=== PATIENT | male | born 1940 | race Caucasian/White ===

== ENCOUNTER 2025-06-12 14:53 | Emergency (ER) | payer OTHER, SELFPAY ==
[2025-06-12 15:00] VITALS: BP 149/62
--- NOTE | 2025-06-12 15:03 | ED.GENMED ---
History of Present Illness
General
Chief Complaint: Blood Sugar Problem
Source: patient and ambulance crew
Exam Limitations: altered mental status
Time Seen by Provider: 06/12/25 14:57
Nursing documentation reviewed up to this point in time: agreed with
History of Present Illness
History of Present Illness:
84-year-old male with an apparent history of insulin-dependent diabetes presents to the ER via EMS from home for evaluation of low blood sugar. Patient is agitated and hypoglycemic on arrival and is not able to participate meaningfully in history.
Per EMS patient was at his son's house and son called EMS because patient became diaphoretic and confused. On EMS arrival he was minimally responsive and diaphoretic and his glucose was 40. He was given glucagon with improvement in his glucose to
the 60s however he became agitated en route to hospital. Patient is confused and not answering questions on arrival. Apparently his family is on the way to the hospital but did not answer on phone call. He cannot tell me his current insulin
regimen or when he last took medication.
Review of Systems
Review of Systems
Unable to obtain full review of systems at this time due to: due to acuity
All Other Systems: Not applicable
Phy Exam
Physical Exam
Physical Exam:
General: Awake but confused and somewhat agitated
Head: Normocephalic, atraumatic
Eyes: Conjunctiva normal, pupils equal round reactive to light bilaterally
Throat: Airway intact, handling secretions
Neck: Trachea midline, supple without meningismus
Lungs: Clear to auscultation bilaterally, no wheezing, rales, rhonchi
Heart: Regular rate and rhythm, no murmurs, gallops, or rubs
Abd: Soft, non distended, nontender
Neuro: Grossly intact but confused
Skin: Moist and somewhat pale
Extremities: Warm with good pulses throughout
Scores
Heart Failure Risk
Heart Failure Risk Score: Not Applicable
Heart Score for Chest Pain Patients
STEMI patient?: Not applicable
Withdrawal Assessment of Alcohol
Withdrawal Assessment Completed?: Not applicable
Course
Orders/Labs/Results
Orders:
Orders
06/12/25 14:57
Bedside Glucose- Treatment ONCE
Dextrose 50%-Water [Dextrose 50% Syringe] 25 grams IV NOW STA
06/12/25 15:34
Complete Blood Count/With Diff Urgent
Comprehensive Metabolic Panel Urgent
06/12/25 15:37
Electrocardiogram (*1) Urgent
Reason for Study: Fatigue / Weakness
EKG- Treatment ONCE
Abnormal Lab Results
06/12/25 06/12/25
15:34 16:12
WBC 17.2 H 10^3/uL
(4.8-10.8)
RBC 3.69 L 10^6/uL
(4.70-6.10)
Hgb 10.6 L g/dL
(13.0-18.0)
Hct 33.4 L %
(39.0-52.0)
MCHC 31.7 L g/dL
(33.0-37.0)
Abs Immat Gran (auto) 0.1 H 10^3/uL
(0-0.05)
Absolute Neuts (auto) 14.7 H 10^3/uL
(1.4-6.5)
Absolute Monos (auto) 1.0 H 10^3/uL
(0.1-0.6)
Immature Gran % 0.6 H %
(0-0.5)
Neutrophils % 85.4 H %
(42.2-75.2)
Lymphocytes % 7.7 L %
(20.5-51.1)
Sodium 134 L mmol/L
(135-145)
Carbon Dioxide 21 L mmol/L
(22-30)
Glucose 218 H mg/dl
(70-99)
POC Glucose 222 H mg/dl 190 H mg/dl
(70-99) (70-99)
06/12/25 15:34
06/12/25 15:34
Vital Signs
Initial and Last Documented VS:
Initial Vital Signs
Pulse Resp BP Pulse Ox
52 18 149/62 95
06/12/25 15:00 06/12/25 15:00 06/12/25 15:00 06/12/25 15:00
Last Documented Vital Signs
Temp Pulse Resp BP Pulse Ox
35.1 C L 52 18 149/62 95
06/12/25 16:03 06/12/25 15:00 06/12/25 15:00 06/12/25 15:00 06/12/25 15:00
MDM/Problems Addressed
Differential Diagnosis Includes:
Hypoglycemia likely related to insulin use/poor p.o. intake in a known insulin-dependent diabetic
MDM/Problems Addressed:
84-year-old male presents to the ER via EMS with hypoglycemia. He was given glucagon but still in the 60s on arrival, still confused and somewhat agitated. Will plan to place an IV send labs and treat with D50. Monitor Accu-Cheks closely. Will
obtain further history either from family on their arrival or from patient once less confused.
Patient's and son are at bedside now. Son reports that he recently moved his father up to the area from [place]. Father came over this morning to help with some yard work and patient complained of being very dizzy and ultimately progressed to
being unresponsive and diaphoretic. Review of patient's blood sugar log from earlier today shows that his sugar was 77 at 6:30 AM prior to administering his morning insulin. He apparently is on Lantus 55 units at breakfast time and takes metformin
1000 mg twice daily; it does not appear that he is on any short acting insulin. It sounds like he ate an egg sandwich at around 9 AM but no other food today.
Clinical reassessment after D50 sugar improved. Patient is less confused. He says he is feeling a little chilly but no other complaints. He says that he had some oatmeal this morning prior to taking his insulin. No recent adjustments to his
insulin regimen.
Blood sugar remains normal on reassessment. Patient awake and alert. Vital stable. Will continue to monitor blood sugar. Will discuss with endocrinology regarding timeline for observation period.
Discussed case with endocrinology�atypical regiment with long-acting insulin only and no supplemental short acting insulin. They recommended that he be observed in the hospital for 24 hours and will likely need adjustment to his insulin regiment.
I spoke to his son and it sounds like he is not well-established with any doctors in this area. He is supposed to see [facility] but does not have an appointment until October 19. Will plan to discussed with patient�otis has been very
resistant to staying for even a short observation period but I do think that overall admission for observation is the right thing to do for him at this point.
I had a long discussion with the patient�he refuses to stay in the hospital and is requesting discharge. His blood sugars have been stable since arrival. I explained to him that I think it would be best for him to stay here for real-time
adjustments to his medicine regimen and to be observed to ensure no repeat drops in his blood sugar given that his insulin is long-acting. He understands but is still refusing and says he wishes to go home. His son and are willing to watch
over him and will be monitoring for any repeat episodes. I encouraged them to make sure that he eats throughout the day. I reached out to endocrinology to help to expedite an appointment as an outpatient to discuss his insulin regimen and they
indicated that they will call him tomorrow to get him in the office. In the meantime we will decrease his current regiment down to 30 units of Lantus once daily. I also reached out to [facility] office to try to expedite his appointment to
establish care there. In keeping with his request we will plan to discharge at this point.
Chronic conditions affecting care:
Insulin-dependent diabetes
*Pulse Oximetry
Patient hypoxic: no (97%)
*Critical Care Note
Total Time (30-74mins, 75-104mins- exclusive of procedures): Not Applicable
Data Reviewed
Source: patient and ambulance crew
Patient Management
Social determinants of health affecting care: Poor outpatient follow-up (Not well-established in the area and does not even establish care with a primary doctor until October)
Discussion with other providers: Metal Turner (Discussed with diversional therapist's assistant)
Escalation/DeEscalation of care consider admission/obs:
Recommended admission but patient refused and was discharged with follow-up plan arranged.
ED Attending Note
-
Portions of this chart may have been created with voice recognition software.� Occasional wrong word or��sound alike� substitutions may have occurred due to the inherent limitations of voice recognition software.
Discharge Plan
Departure
Patient with high blood pressure during this ER visit?: Yes
Discharge Problem:
Hypoglycemia
Instructions: Low Blood Sugar, Adult (DC)
Referrals:
Celso Aguirre CRNP [Non-Admitting Privileges, [facility]] - Call in 1-3 days for appt
Referral Note: You should receive a call from the [facility] office to expedite your appointment
Bijan Gilman MD [Consulting Staff, Endocrinology] - Call in 1-3 days for appt
Referral Note: You should receive a call from the endocrinology office tomorrow to schedule you for an appointment to discuss your diabetes management.
Activity Restrictions/Additional Instructions:
You were seen in the emergency room for low blood sugar. It is very important that you watch your blood sugar closely over the next 24 hours. You should make sure that you eat a good dinner tonight. If you have dizziness or low blood sugars again
please return to the ER.
I spoke with the diversional therapist's assistant (diabetes specialists) and they should call you tomorrow to get you in the office to discuss management of your sugars. In the short-term they recommended that you decrease your dose of long-acting insulin to 30
units daily.
I also spoke with the office at [facility] to try and expedite your appointment to establish care there; you should receive a call to help expedite this appointment.
Please return to the ER with any issues.
Interventions
Interventions:
*General Assessment Last Done: 06/12/25 15:00
*Neglect/Abuse Screening Last Done: 06/12/25 15:00
ED- Neurological Assessment Last Done: 06/12/25 15:14
Discharge Date and Time
Print Language: MALIAN
[2025-06-12] MEDS: DEXTROSE 50% SYRINGE 25 GRAMS IV (15:13)
[2025-06-12 15:37] LABS: Glucose - Point of Care 222 mg/dl (70-99)
[2025-06-12 15:41] LABS: Hematocrit 33.4 % (39.0-52.0); Hemoglobin 10.6 g/dL (13.0-18.0); Mean Corp Hgb Conc. 31.7 g/dL (33.0-37.0); Mean Corpuscular Volume 90.5 fL (80.0-94.0); Nucleated Red Blood Cells % 0 % (-); Platelet Count 217 10^3/uL (130-400); Red Cell Dist. Width 13.8 % (11.5-14.5)
[2025-06-12 16:10] LABS: ALT (SGPT) 14 U/L (0-50); AST (SGOT) 24 U/L (17-59); Albumin 4.0 g/dl (3.5-5.0); Alkaline Phosphatase 62 U/L (38-126); Blood Urea Nitrogen 14 mg/dl (9-20); Calcium 9.5 mg/dl (8.4-10.2); Carbon Dioxide 21 mmol/L (22-30); Chloride 105 mmol/L (98-107); Glucose 218 mg/dl (70-99); Potassium 3.8 mmol/L (3.5-5.1); Sodium 134 mmol/L (135-145); Total Protein 6.7 g/dl (6.3-8.2); eGFR > 60.00
[2025-06-12 16:14] LABS: Glucose - Point of Care 190 mg/dl (70-99)
[2025-06-12 17:16] LABS: Glucose - Point of Care 183 mg/dl (70-99)
[2025-06-12 17:53] VITALS: BP 145/62
[2025-06-13 08:57] LABS: Glycohemoglobin (HgbA1c) 8.1 % (4.0-5.9)
== END 2025-06-12 17:54 | disposition home or self-care (01) ==
LOC: EMR 14:53
PROVIDERS: EMERGENCY PHYSICIAN Emergency Medicine
DX: E11.649 Type 2 diabetes mellitus with hypoglycemia without coma (principal); R45.1 Restlessness and agitation; R61 Generalized hyperhidrosis; R03.0 Elevated blood-pressure reading, without diagnosis of hypertension; Z79.4 Long term (current) use of insulin
CPT/HCPCS: 99284; 96374; 80053; 82962; 83036; 85025; 93005